=== PATIENT | female | born 1980 | race Caucasian/White ===

== ENCOUNTER → 2021-07-05 | Outpatient (CLI) | payer BC ==
--- NOTE | 2021-07-08 03:47 | REP ---
INDICATION: ABN IMAGING CXR COMPARISON: None TECHNIQUE: Axial noncontrast images from the thoracic inlet to the upper abdomen with coronal and sagittal reformations. This CT examination was performed using the following dose reduction techniques: Automated exposure control, adjustment of mA and/or kv according to the patient's size, and use of iterative reconstruction technique. FINDINGS: Bilateral lung jaramillo are well aerated and relatively clear. No acute consolidation or effusion. No suspicious nodule or mass. Calcified granuloma in the apex of the left lower lobe is identified. Tracheobronchial tree is patent. Mediastinum demonstrates normal thoracic aorta, pulmonary vasculature, and heart/pericardium. Surrounding musculoskeletal structures are intact and without acute osseous abnormality. IMPRESSION: No acute mediastinal or pleuroparenchymal process. <Electronically signed by Raghavendra Foster > 07/08/21 1645
== END ==
LOC: M PLAIMG 15:15
PROVIDERS: ATTEND Nurse Practitioner Family
DX: R91.8 Other nonspecific abnormal finding of lung field (principal)